=== PATIENT | female | born 1965 | race Caucasian/White ===

== ENCOUNTER 2017-02-20 04:28 | Observation (INO) | payer BC ==
[2017-02-20] MEDS ORDERED: Sodium Chloride 0.9% 10 ML Syringe FLUSH PRN (04:56)
[2017-02-20] MEDS ORDERED: Aspirin 81 MG Tab.Chew PO ONE (05:02)
[2017-02-20] MEDS ORDERED: Nitroglycerin 0.4 MG Tab.SL SL ONE (05:06)
--- NOTE | 2017-02-20 05:08 | EDM.PDOC ---
ED HPI GENERAL MEDICAL PROBLEM - General Chief Complaint: Chest Pain Stated Complaint: CP, Irreg HR Time Seen by Provider: 02/20/17 04:40 Source of Information: Reports: Patient History Limitations: Reports: No Limitations - History of Present Illness INITIAL COMMENTS - FREE TEXT/NARRATIVE: Patient is a 51-year-old states that she woke up this morning with an irregular heart rate and some chest pressure denied pain patient has history of atrial fibrillation Onset: Sudden Duration: Hour(s): Location: Reports: Chest Quality: Reports: Pressure Severity: Mild Improves with: Reports: Movement Worsens with: Reports: None Context: Reports: Sick Contact Associated Symptoms: Reports: Chest Pain 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 Left Chest Pain Score (Numeric/FACES): 3 - Related Data Allergies Allergy/AdvReac Type Severity Reaction Status Date / Time Sulfa (Sulfonamide Allergy Nausea and Verified 02/20/17 05:01 Antibiotics) Vomiting tramadol Allergy Itching Verified 02/20/17 05:01 Home Meds: Home Meds Sertraline [Zoloft] 100 mg PO DAILY 01/02/14 [History] Levothyroxine 125 mcg PO ASDIRECTED 10/02/14 [History] Aspirin [Ecotrin] 325 mg PO DAILY 02/20/17 [History] Social & Family History - Tobacco Use Years of Tobacco use: 4 Used Tobacco, but Quit: Yes Second Hand Smoke Exposure: No - Alcohol Use Days Per Week of Alcohol Use: 5 Number of Drinks Per Day: 5 (Usually beer with occasional intoxication with no previous history of DWIs, etc.) Total Drinks Per Week: 25 - Recreational Drug Use Recreational Drug Use: No Drug Use in Last 12 Months: No Recreational Drug Last Use: No caffeine use - Living Situation & Occupation Living situation: Reports: with Family, Occupation: Employed ED ROS GENERAL - Review of Systems Review Of Systems: See Below Constitutional: Reports: No Symptoms HEENT: Reports: No Symptoms Respiratory: Reports: No Symptoms Cardiovascular: Reports: Palpitations Endocrine: Reports: No Symptoms GI/Abdominal: Reports: No Symptoms : Reports: No Symptoms Musculoskeletal: Reports: No Symptoms Skin: Reports: No Symptoms Neurological: Reports: No Symptoms Psychiatric: Reports: No Symptoms Hematologic/Lymphatic: Reports: No Symptoms Immunologic: Reports: No Symptoms ED EXAM, GENERAL - Physical Exam Exam: See Below Exam Limited By: No Limitations General Appearance: Alert, WD/WN, No Apparent Distress Ears: Normal External Exam, Normal Canal, Hearing Grossly Normal, Normal TMs Nose: Normal Inspection, Normal Mucosa, No Blood Throat/Mouth: Normal Inspection, Normal Lips, Normal Teeth, Normal Gums, Normal Oropharynx, Normal Voice, No Airway Compromise Head: Atraumatic, Normocephalic Neck: Normal Inspection, Supple, Non-Tender, Full Range of Motion Respiratory/Chest: No Respiratory Distress, Lungs Clear, Normal Breath Sounds, No Accessory Muscle Use, Chest Non-Tender Cardiovascular: Normal Peripheral Pulses, Regular Rate, Rhythm, No Edema, No Gallop, No JVD, No Murmur, No Rub GI/Abdominal: Normal Bowel Sounds, Soft, Non-Tender, No Organomegaly, No Distention, No Abnormal Bruit, No Mass Rectal (Female) Exam: Deferred Back Exam: Normal Inspection, Full Range of Motion, NT Extremities: Normal Inspection, Normal Range of Motion, Non-Tender, Normal Capillary Refill, No Pedal Edema Neurological: Alert, Oriented, CN II-XII Intact, Normal Cognition, Normal Gait, Normal Reflexes, No Motor/Sensory Deficits Psychiatric: Normal Affect, Normal Mood Skin Exam: Warm, Dry, Intact, Normal Color, No Rash Lymphatic: No Adenopathy EKG INTERPRETATION EKG Date: 02/20/17 Rhythm: NSR Mellen: Normal P-Wave: Present QRS: Normal ST-T: Other (Nonspecific ST changes) QT: Normal Comparison: No Change Course - Vital Signs Last Recorded V/S: Last Vital Signs Temp 97.8 F 02/20/17 04:36 Pulse 88 02/20/17 04:36 Resp 18 02/20/17 04:36 BP 148/97 H 02/20/17 04:36 Pulse Ox 95 02/20/17 04:36 - Orders/Labs/Meds Orders: Active Orders 24 hr Category Date Time Status Cardiac Monitoring [RC] . DIRECTED Care 02/20/17 04:52 Active EKG Documentation Completion [RC] ASDIRECTED Care 02/20/17 04:50 Active Chest 1V Frontal [CR] Stat Exams 02/20/17 04:50 Ordered CBC WITH AUTO DIFF [HEME] Stat Lab 02/20/17 04:51 Ordered CK W CKMB [CHEM] Stat Lab 02/20/17 04:51 Ordered CMP [COMPREHENSIVE METABOLIC PN,CMP] [CHEM] Stat Lab 02/20/17 04:51 Ordered DD [D-DIMER QUANTITATIVE] [COAG] Stat Lab 02/20/17 04:52 Ordered INR,PT,PROTHROMBIN TIME [COAG] Stat Lab 02/20/17 04:51 Ordered TROPONIN I [CHEM] Stat Lab 02/20/17 04:51 Ordered TSH ULTRASENSITIVE [CHEM] Stat Lab 02/20/17 04:51 Ordered Sodium Chloride 0.9% [Saline Flush] Med 02/20/17 04:56 Active 10 ml FLUSH ASDIRECTED PRN Saline Lock Insert [OM.PC] Routine Oth 02/20/17 04:56 Ordered EKG 12 Lead [EK] Routine Ther 02/20/17 04:50 Ordered Medication Orders Sodium Chloride (Saline Flush) 10 ml FLUSH ASDIRECTED PRN PRN Reason: Keep Vein Open Meds: Medications Generic Name Dose Route Start Last Admin Trade Name Freq PRN Reason Stop Dose Admin Sodium Chloride 10 ml 02/20/17 04:56 Saline Flush FLUSH ASDIRECTED PRN Keep Vein Open Discontinued Medications Generic Name Dose Route Start Last Admin Trade Name Freq PRN Reason Stop Dose Admin Aspirin 324 mg 02/20/17 05:02 Aspirin PO 02/20/17 05:03 ONETIME ONE Departure - Departure Time of Disposition: 05:31 Disposition: Refer to Observation Condition: Fair Clinical Impression: Atypical chest pain, Atrial fib/flutter, transient Forms: ED Department Discharge Care Plan Goals: At this point in time patient will be admitted to the hospital EKG will be repeated later today troponins 3 will be checked will increase the metoprolol to 100 mg daily also decreased the thyroid Synthroid to 150 daily placed on telemetry and observe As H&P use ER note - My Orders Last 24 Hours: My Active Orders 02/20/17 04:50 EKG Documentation Completion [RC] ASDIRECTED Chest 1V Frontal [CR] Stat EKG 12 Lead [EK] Routine 02/20/17 04:51 CBC WITH AUTO DIFF [HEME] Stat CK W CKMB [CHEM] Stat CMP [COMPREHENSIVE METABOLIC PN,CMP] [CHEM] Stat INR,PT,PROTHROMBIN TIME [COAG] Stat TROPONIN I [CHEM] Stat TSH ULTRASENSITIVE [CHEM] Stat 02/20/17 04:52 Cardiac Monitoring [RC] . DIRECTED DD [D-DIMER QUANTITATIVE] [COAG] Stat 02/20/17 04:56 Sodium Chloride 0.9% [Saline Flush] 10 ml FLUSH ASDIRECTED PRN Saline Lock Insert [OM.PC] Routine - Assessment/Plan Last 24 Hours: My Active Orders 02/20/17 04:50 EKG Documentation Completion [RC] ASDIRECTED Chest 1V Frontal [CR] Stat EKG 12 Lead [EK] Routine 02/20/17 04:51 CBC WITH AUTO DIFF [HEME] Stat CK W CKMB [CHEM] Stat CMP [COMPREHENSIVE METABOLIC PN,CMP] [CHEM] Stat INR,PT,PROTHROMBIN TIME [COAG] Stat TROPONIN I [CHEM] Stat TSH ULTRASENSITIVE [CHEM] Stat 02/20/17 04:52 Cardiac Monitoring [RC] . DIRECTED DD [D-DIMER QUANTITATIVE] [COAG] Stat 02/20/17 04:56 Sodium Chloride 0.9% [Saline Flush] 10 ml FLUSH ASDIRECTED PRN Saline Lock Insert [OM.PC] Routine
[2017-02-20 05:18] LABS: CHLORIDE,CL 105 mmol/L (98-107); SODIUM,NA 144 mmol/L (136-145)
[2017-02-20] MEDS ORDERED: Ondansetron 4 MG Tab.DIS PO PRN (05:34)
[2017-02-20] MEDS: Aspirin 325 MG Tab.EC PO SCH ×2 (06:21→07:02)
[2017-02-20] MEDS: Levothyroxine 150 MCG Tab PO SCH (07:52)
[2017-02-20] MEDS: Pantoprazole 40 MG Tab.CR PO SCH (07:52)
[2017-02-20] MEDS: Sodium Chloride 0.9% 10 ML Syringe FLUSH SCH ×2 (07:53→20:08)
[2017-02-20] MEDS ORDERED: Metoprolol Succinate 50 MG Tab.ER PO SCH (08:00)
[2017-02-20] MEDS ORDERED: Non-Formulary Medication 1 Each (Sertraline [Zoloft] 100 MG) PO SCH (08:00)
[2017-02-20] MEDS ORDERED: Aspirin 81 MG Tab.Chew PO SCH (08:00)
[2017-02-20] MEDS ORDERED: Sertraline 50 MG Tab PO SCH (08:10)
[2017-02-20] MEDS: Sertraline 50 MG Tab PO SCH (08:31)
[2017-02-20] MEDS ORDERED: Acetaminophen 325 MG Tab PO PRN (19:56)
[2017-02-21] MEDS: Sertraline 50 MG Tab PO SCH (08:11)
[2017-02-21] MEDS: Aspirin 325 MG Tab.EC PO SCH (08:12)
[2017-02-21] MEDS: Pantoprazole 40 MG Tab.CR PO SCH (08:12)
[2017-02-21] MEDS: Levothyroxine 150 MCG Tab PO SCH (08:12)
[2017-02-21] MEDS: Sodium Chloride 0.9% 10 ML Syringe FLUSH SCH (08:32)
--- NOTE | 2017-02-21 09:19 | PCM.DCSUM1 ---
Discharge Summary - Hospital Course Free Text/Narrative:: Patient is a 51-year-old who was admitted to observation for atrial fibrillation -troponins done 3 all negative EKG shows normal sinus rhythm at this time she is ready for discharge she is normocephalic atraumatic lungs clear heart regular rate and rhythm abdomen soft nontender no masses no organomegaly assessment/plan: is #1atrial fibrillation #2 is hypothyroidism -we upped her thyroid from 125-150. I did call her provider and told her what we have done so that she could follow through.we also started her on metoprolol 100 mg that she has not taken for a while - Discharge Data Discharge Date: 02/21/17 Discharge Disposition: Home, Self-Care 01 Condition: Good - Patient Instructions Diet: Usual Diet as Tolerated Activity: As Tolerated Showering/Bathing: November Shower - Discharge Plan Prescriptions/Med Rec: Levothyroxine 150 mcg PO ACBREAKFAST #30 tablet Metoprolol Succinate [Toprol XL] 100 mg PO DAILY #30 tab.er Home Medications: Home Meds Sertraline [Zoloft] 100 mg PO DAILY 01/02/14 [History] Aspirin [Ecotrin] 325 mg PO DAILY 02/20/17 [History] Levothyroxine 150 mcg PO ACBREAKFAST #30 tablet 02/21/17 [Rx] Metoprolol Succinate [Toprol XL] 100 mg PO DAILY #30 tab.er 02/21/17 [Rx] Patient Handouts: Nonspecific Chest Pain, [id number], Atrial Fibrillation, [id number] Forms: ED Department Discharge Referrals: Marta Joiner PA-C [Primary Care Provider] - (Follow up with PCP in 1 week for post hospitalization follow up ) - Discharge Summary/Plan Comment DC Time >30 min.: No - General Info Date of Service: 02/21/17 - Review of Systems General: Reports: No Symptoms HEENT: Reports: No Symptoms Pulmonary: Reports: No Symptoms Cardiovascular: Reports: No Symptoms Gastrointestinal: Reports: No Symptoms Genitourinary: Reports: No Symptoms Musculoskeletal: Reports: No Symptoms Skin: Reports: No Symptoms Neurological: Reports: No Symptoms Psychiatric: Reports: No Symptoms - Patient Data Vitals - Most Recent: Last Vital Signs Temp 97.9 F 02/21/17 08:00 Pulse 57 L 02/21/17 08:00 Resp 15 02/21/17 08:00 BP 120/71 02/21/17 08:00 Pulse Ox 94 L 02/21/17 08:00 Weight - Most Recent: 187 lb 9.602 oz I&O - Last 24 hours: Intake & Output 02/20/17 02/21/17 02/21/17 22:59 06:59 14:59 Intake Total 660 100 Output Total 350 250 Balance 310 -150 Lab Results - Last 24 hrs: Laboratory Results - last 24 hr 02/20/17 02/20/17 Range/Units 09:40 15:50 Sodium 141 (136-145) mmol/L Potassium 4.2 (3.5-5.1) mmol/L Chloride 105 (98-107) mmol/L Carbon Dioxide 28.9 (21.0-32.0) mmol/L BUN 23 H (7-18) mg/dL Creatinine 1.11 (0.51-1.17) mg/dL Est Cr Clr Drug Dosing 48.47 mL/min Estimated GFR (MDRD) 51 mL/min Glucose 101 (74-106) mg/dL Calcium 9.2 (8.5-10.1) mg/dL Magnesium 2.0 (1.8-2.4) mg/dL Troponin I 0.000 0.000 (0.000-0.056) ng/mL Med Orders - Current: Current Medications Acetaminophen (Tylenol) 650 mg PO Q4H PRN PRN Reason: Pain Last Admin: 02/20/17 20:07 Dose: 650 mg Aspirin (Ecotrin) 325 mg PO DAILY [facility] Last Admin: 02/21/17 08:12 Dose: 325 mg Levothyroxine Sodium (Levothyroxine) 150 mcg PO ACBREAKFAST [facility] Last Admin: 02/21/17 08:12 Dose: 150 mcg Metoprolol Succinate (Toprol Xl) 100 mg PO DAILY [facility] Last Admin: 02/20/17 07:51 Dose: 100 mg Ondansetron HCl (Zofran Odt) 4 mg PO Q4H PRN PRN Reason: Nausea/Vomiting Pantoprazole Sodium (Protonix) 40 mg PO DAILY [facility] Last Admin: 02/21/17 08:12 Dose: 40 mg Sertraline HCl (Zoloft) 100 mg PO DAILY [facility] Last Admin: 02/21/17 08:11 Dose: 100 mg Sodium Chloride (Saline Flush) 10 ml FLUSH ASDIRECTED PRN PRN Reason: Keep Vein Open Last Admin: 02/20/17 05:07 Dose: 10 ml Sodium Chloride (Saline Flush) 10 ml FLUSH 08,20 [facility] Last Admin: 02/21/17 08:32 Dose: 10 ml Discontinued Medications Aspirin (Aspirin) 324 mg PO ONETIME ONE Stop: 02/20/17 05:03 Last Admin: 02/20/17 05:05 Dose: 324 mg Aspirin (Aspirin) 81 mg PO DAILY [facility] Nitroglycerin (Nitrostat) 0.4 mg SL ONETIME ONE Stop: 02/20/17 05:07 Last Admin: 02/20/17 05:09 Dose: 0.4 mg Non-Formulary Medication (Sertraline [Zoloft]) 100 mg PO DAILY [facility] Last Admin: 02/20/17 09:10 Dose: Not Given Sertraline HCl (Zoloft) 100 mg PO DAILY [facility] - Exam General: Reports: Alert, Oriented HEENT: Reports: Pupils Equal, Pupils Reactive, EOMI, Mucous Membr. Moist/[place] Neck: Reports: Supple Lungs: Reports: Clear to Auscultation, Normal Respiratory Effort Cardiovascular: Reports: Regular Rate, Regular Rhythm GI/Abdominal Exam: Normal Bowel Sounds, Soft, Non-Tender (Female) Exam: Deferred Rectal (Female) Exam: Deferred Extremities: Normal Inspection, Normal Range of Motion, Non-Tender, No Pedal Edema, Normal Capillary Refill Skin: Reports: Warm, Dry, Intact Neurological: Reports: No New Focal Deficit Psy/Mental Status: Reports: Alert Physical Findings Comments:: he is normocephalic atraumatic lungs clear heart regular rate and rhythm abdomen soft nontender no masses no organomegaly *Q Meaningful Use (DIS) - VTE *Q VTE Criteria *Q: - Stroke *Q Stroke Criteria *Q: - AMI *Q AMI Criteria *Q:
[2017-02-21 11:46] VITALS: BP 106/70
== END 2017-02-21 12:08 | disposition home or self-care (01) ==
LOC: LL.ED 04:28 → LL.MS 05:35
PROVIDERS: ADMIT Family Medicine; ATTEND Family Medicine
DX: I48.91 Unspecified atrial fibrillation (principal); E03.9 Hypothyroidism, unspecified; F32.9 Major depressive disorder, single episode, unspecified; Z79.82 Long term (current) use of aspirin; Z79.899 Other long term (current) drug therapy; Z88.2 Allergy status to sulfonamides; Z88.8 Allergy status to other drugs, medicaments and biological substances
CPT/HCPCS: 36000; 36415; 71010; 80048; 80053; 82550; 82553; 83735; 84443; 84484; 85025; 85379; 85610; 93005; 94761; 99285; A9270; G0378; J7050

== ENCOUNTER 2019-08-08 10:56 | Day surgery (SDC) | payer BC ==
[~2019-08-08 10:56] MED LIST: Midazolam 1 MG/ML 2 ML SDV ONE; Propofol 200 MG/20 ML SDV ONE
[2019-08-08] MEDS ORDERED: Sodium Chloride 0.9% 10 ML Syringe FLUSH PRN (11:15)
[2019-08-08] MEDS: Lactated Ringers 1,000 ML IV SCH (12:02)
--- NOTE | 2019-08-08 12:36 | PCM.PN ---
- General Info Date of Service: 08/08/19 - Review of Systems Systems Review Comment:: 53-year-old female referred for her initial colonoscopy. She has had some recent symptoms of diarrhea over a short period of time. She denies any rectal bleeding. She denies any family history of colon cancer. Her recent history and physical is reviewed and no significant changes are noted. I have discussed the proposed colonoscopy with the patient. Risks such as but not limited to bleeding and GI injury reviewed. She agrees to proceed. - Patient Data Vitals - Most Recent: Last Vital Signs Temp 98.5 F 08/08/19 11:41 Pulse 70 08/08/19 11:41 Resp 18 08/08/19 11:41 BP 112/80 08/08/19 11:41 Pulse Ox 95 08/08/19 11:41 Weight - Most Recent: 72.575 kg Med Orders - Current: Current Medications Lactated Ringer's (Ringers, Lactated) 1,000 mls @ 125 mls/hr IV ASDIRECTED [facility] Last Admin: 08/08/19 12:02 Dose: 125 mls/hr Sodium Chloride (Saline Flush) 10 ml FLUSH ASDIRECTED PRN PRN Reason: Keep Vein Open Discontinued Medications Midazolam HCl (Versed 1 Mg/Ml) Confirm Administered Dose 2 mg .ROUTE .STK-MED ONE Stop: 08/08/19 08:43 Propofol (Diprivan 20 Ml) Confirm Administered Dose 200 mg .ROUTE .STK-MED ONE Stop: 08/08/19 08:43 Sepsis Event Note - Focused Exam Vital Signs: Vital Signs Temp Pulse Resp BP Pulse Ox 08/08/19 11:41 98.5 F 70 18 112/80 95 Date Exam was Performed: 08/08/19 Time Exam was Performed: 12:34 - Problem List Review Problem List Initiated/Reviewed/Updated: Yes - My Orders Last 24 Hours: My Active Orders 08/08/19 11:15 Patient Status [ADT] Routine Peripheral IV Care [RC] . DIRECTED Verify Patient Consent Obtain [RC] ROUTINE Lactated Ringers [Ringers, Lactated] 1,000 ml IV ASDIRECTED Sodium Chloride 0.9% [Saline Flush] 10 ml FLUSH ASDIRECTED PRN Peripheral IV Insertion Adult [OM.PC] Routine - Assessment Assessment:: colon cancer screening - Plan Plan:: colonoscopy
[2019-08-08] MEDS ORDERED: Propofol 200 MG/20 ML SDV ONE (12:40)
[2019-08-08] MEDS ORDERED: Midazolam 1 MG/ML 2 ML SDV ONE (12:40)
--- NOTE | 2019-08-08 13:18 | PCM.OPNOTE ---
- General Post-Op/Procedure Note Date of Surgery/Procedure: 08/08/19 Operative Procedure(s): Colonoscopy Findings: Extensive Sigmoid Diverticulosis Pre Op Diagnosis: Colon cancer screening with diarrhea Post-Op Diagnosis: Diverticulosis Anesthesia Technique: MAC Primary Surgeon: Derick Lau Pathology: none EBL in mLs: 0 Complications: None Condition: Good
[2019-08-08 15:20] VITALS: BP 102/66; PULSE 72
--- NOTE | 2019-08-08 16:16 | OR ---
Date of Procedure: 08/08/2019 PREOPERATIVE DIAGNOSIS: Colon cancer screening and diarrhea. POSTOPERATIVE DIAGNOSIS: Sigmoid diverticulosis. OPERATIONS PERFORMED: Colonoscopy. INDICATIONS FOR SURGERY: This 53-year-old female is referred for her initial screening colonoscopy. She has had some diarrhea in the recent past. FINDINGS: The patient has extensive diverticulosis in the region of the sigmoid colon. Multiple diverticula are noted. The colon is severely tortuous through this region, although I do not see any definite stricturing or visible signs of acute inflammation. No polyps or other abnormalities were seen. DESCRIPTION OF PROCEDURE: The patient was taken to the operating room. She was given intravenous sedation, and with her in the left lateral decubitus position, digital rectal exam was performed showing no rectal masses. The Olympus colonoscope was inserted into the rectum. Retroflexed examination of the rectal canal was performed. The scope was advanced into the sigmoid region. There, the severe diverticulosis was encountered. Persistent careful manipulation of the scope was then required to eventually safely traverse the sigmoid region. The scope was then further advanced, and even though the colon was markedly tortuous, the cecum is able eventually to be accessed and visualized. The normal cecal anatomy including the appendiceal orifice and ileocecal valve are viewed, and the light is also noted to transilluminate the abdominal wall in the right lower quadrant. The ileocecal valve was cannulated and the terminal ileum examined and it appeared visibly normal. The scope was then slowly withdrawn sequentially re-examining the colonic segments until the entire colon and rectum had been fully examined. The scope was removed. The patient was taken from the operating room in satisfactory condition. ESTIMATED BLOOD LOSS: 0. COMPLICATIONS: None. PROGNOSIS: Good. HEATHER Lau MD /[id number]
== END 2019-08-08 14:09 | disposition home or self-care (01) ==
LOC: LL.SDS 10:56
PROVIDERS: ATTEND Surgery
DX: K57.30 Diverticulosis of large intestine without perforation or abscess without bleeding (principal); Q43.8 Other specified congenital malformations of intestine; I48.0 Paroxysmal atrial fibrillation; I10 Essential (primary) hypertension; E03.9 Hypothyroidism, unspecified; F32.9 Major depressive disorder, single episode, unspecified; Z79.899 Other long term (current) drug therapy; Z79.82 Long term (current) use of aspirin; Z88.5 Allergy status to narcotic agent; Z88.6 Allergy status to analgesic agent; Z88.2 Allergy status to sulfonamides
CPT/HCPCS: J2250; J2704; J7120

== ENCOUNTER 2020-08-07 16:47 | Emergency (ER) | payer BC ==
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
[2020-08-07] MEDS: Bacitracin/Neomycin/Polymyxin B Oint 0.9 GM U/D Packet TOP ONE (18:08)
[2020-08-07 18:18] VITALS: BP 140/86; PULSE 56
[2020-08-07] MEDS: Diphtheria,Pertussis(Acell),Tetanus Vaccine 0.5 ML Syringe IM ONE (19:00)
== END 2020-08-07 19:00 | disposition home or self-care (01) ==
LOC: SUPCPDRO 16:47 → LL.ED 16:47
DX: S61.012A Laceration without foreign body of left thumb without damage to nail, initial encounter (principal); E03.9 Hypothyroidism, unspecified; I48.92 Unspecified atrial flutter; M89.49 Other hypertrophic osteoarthropathy, multiple sites; I11.0 Hypertensive heart disease with heart failure; I50.9 Heart failure, unspecified; G62.9 Polyneuropathy, unspecified; M41.9 Scoliosis, unspecified; J44.9 Chronic obstructive pulmonary disease, unspecified; Z88.5 Allergy status to narcotic agent; Z88.2 Allergy status to sulfonamides; Z88.8 Allergy status to other drugs, medicaments and biological substances; Z79.82 Long term (current) use of aspirin; W26.8XXA Contact with other sharp object(s), not elsewhere classified, initial encounter; Y92.009 Unspecified place in unspecified non-institutional (private) residence as the place of occurrence of the external cause
CPT/HCPCS: 12001; 99282; J2001

== ENCOUNTER 2024-10-24 11:23 | Day surgery (SDC) | payer BC ==
[~2024-10-24 11:23] MED LIST changes: +Sodium Chloride 0.9% 10 ML Syringe FLUSH PRN
[2024-10-24] MEDS: Lactated Ringers 1,000 ML IV SCH (12:47)
[2024-10-24 13:46] VITALS: BP 134/86; PULSE 63
== END 2024-10-24 14:05 | disposition home or self-care (01) ==
LOC: LL.SDS 11:23
PROVIDERS: ATTEND Surgery
DX: Z12.11 Encounter for screening for malignant neoplasm of colon (principal); K57.30 Diverticulosis of large intestine without perforation or abscess without bleeding; Z86.0100 Personal history of colon polyps, unspecified; I48.0 Paroxysmal atrial fibrillation; Z87.891 Personal history of nicotine dependence; Z79.899 Other long term (current) drug therapy; Z88.5 Allergy status to narcotic agent; Z88.2 Allergy status to sulfonamides
CPT/HCPCS: J7120